=== PATIENT | female | born 1995 ===

== ENCOUNTER 2018-06-21 16:36 | Emergency (ER) | payer OTHER ==
[2018-06-21 16:45] VITALS: O2SAT 100
--- NOTE | 2018-06-21 17:07 | ED PDOC ---
HPI: Trauma/Fall - HPI Time Seen by Provider: 06/21/18 16:45 Chief Complaint (Nursing): Back Pain Chief Complaint (Provider): Pain s/p Fall History Per: Patient History/Exam Limitations: no limitations Injury Occurred (Timing): Hours Ago: (x4) Pain Scale Rating Of: 10 (back pain when standing) Additional Complaint(s): 23 year old female presents to the ED for evaluation of neck, lower back, and right foot pain s/p two slip and fall incidents on her way to work about four hours prior to arrival. She reports landing on her buttocks in a seated position both times, and notes the pain is the worst to her lower back, described as a 10/10 soreness, unrelieved with Tylenol last dose around 1350. Otherwise denies previous back injury/surgery, numbness/weakness, incontinence, urinary symptoms, bowel dysfunction, fever, abdominal pain, N/V/D, loss of consciousness, and head injury. LNMP: does not remember due to irregularity, has control implant in arm PMD: none provided Past Medical History Reviewed: Historical Data, Nursing Documentation, Vital Signs Vital Signs: Last Vital Signs Temp 97.5 F L 06/21/18 16:42 Pulse 83 06/21/18 16:42 Resp 16 06/21/18 16:42 BP 136/95 H 06/21/18 16:42 Pulse Ox 100 06/21/18 16:42 - Medical History PMH: No Chronic Diseases - Surgical History Surgical History: No Surg Hx - Family History Family History: States: Unknown Family Hx - Home Medications Home Medications: Ambulatory Orders Medication Instructions Recorded Acetaminophen [Acetaminophen 8 650 mg PO Q8 PRN #21 tablet.er 06/21/18 Hour] RX: Naproxen 500 mg PO BID PRN #20 tab 06/21/18 - Allergies Allergies/Adverse Reactions: Allergies Allergy/AdvReac Type Severity Reaction Status Date / Time No Known Allergies Allergy Verified 06/21/18 16:42 Review of Systems ROS Statement: Except As Marked, All Systems Reviewed And Found Negative Musculoskeletal: Positive for: Neck Pain, Back Pain (lower, 10/10 soreness) Neurological: Negative for: Other (loss of consciousness) Physical Exam - Reviewed Nursing Documentation Reviewed: Yes Vital Signs Reviewed: Yes - Physical Exam Comments: GENERAL APPEARANCE: Patient is awake, alert, oriented x 3, in no acute distress. SKIN: Warm, dry; (-) cyanosis. HEAD: (-) swelling and tenderness, with no palpable bony defect. EYES: (-) conjunctival pallor, (-) scleral icterus, (-) nystagmus. ENMT: Mucous membranes moist. Nose: (-) tenderness. No oral trauma. Pharynx clear. Airway patent: (-) stridor. Full ROM of mandible without pain. NECK: Supple, full ROM. (+) bilateral paracervical tenderness, (-) vertebral tenderness, (-) lymphadenopathy. CHEST AND RESPIRATORY: (-) rales, (-) rhonchi, (-) wheezes; breath sounds equal bilaterally. Respirations nonlabored. HEART AND CARDIOVASCULAR: (-) irregularity ABDOMEN AND GI: Soft; (-) tenderness. BACK: (+) midline lumbar spine tenderness, (+) coccyx tenderness, (+) right paralumbar tenderness RIGHT FOOT: (+) mild tenderness to hindfoot, full ROM of foot and ankle (-) swelling, (-) ecchymosis, (-) palpable deformity, (-) break in skin integrity. Sensation intact throughout. Remainder of RLE nontender with full ROM. NEURO AND PSYCH: Gait steady in ED. Mental status as above. 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 EOMI. (-) facial asymmetry. Strength 5/5 in all extremities. No gross sensory deficits. Gait: steady. Speech: clear. - Laboratory Results Urine POC: Negative - ECG O2 Sat by Pulse Oximetry: 100 (RA) Pulse Ox Interpretation: Normal Medical Decision Making Medical Decision Making: Initial Impression: acute neck, back, and foot pain s/p fall Time: 1654 Initial Plan: --U-preg --Lumbar spine XR --Naproxen 500mg PO --Reevaluation 1819 Lumbar XRs reviewed, radiology report follows Date of service: 06/21/2018 PROCEDURE: Radiographs of the Lumbar Spine. HISTORY: coccyx injury s/p fall COMPARISON: None available. FINDINGS: BONES: Alignment appears satisfactory. No listhesis. No acute displaced fracture identified. DISC SPACES: Unremarkable. OTHER FINDINGS: Moderate constipation. IMPRESSION: No acute displaced fracture or subluxation identified. Moderate constipation. On re-evaluation, patient reports improvement of symptoms. On exam, patient remains AAOx3, in no acute distress. Vitals stable. Lab/Diagnostic results d/w the patient in great detail. Diagnosis of acute back, neck, and foot pain s/p fall d/w the patient. Based on history, exam and diagnostic results, plan will be for outpatient follow up with clinic/PMD/ortho. Patient instructed to follow-up with pmd / referral provided / the clinic in 1- 2 days without fail. Advised to take medication as prescribed. Return to the emergency room at any time for any new or worsening symptoms. Patient states she fully agrees with and understands discharge instructions. States that she agrees with the plan and disposition. Verbalized and repeated discharge instructions and plan. I have given the patient opportunity to ask any additional questions. Scribe Attestation: Documented by Deneen Godwin, acting as a scribe for Aarti Aggarwal PA-C. Provider Scribe Attestation: All medical record entries made by the Scribe were at my direction and personally dictated by me. I have reviewed the chart and agree that the record accurately reflects my personal performance of the history, physical exam, medical decision making, and the department course for this patient. I have also personally directed, reviewed, and agree with the discharge instructions and disposition. Disposition - Clinical Impression Clinical Impression: Back pain, Neck pain, Foot pain, Fall from slipping on wet surface, Coccyx contusion - Patient ED Disposition Is Patient to be Admitted: No Counseled Patient/Family Regarding: Studies Performed, Diagnosis, Need For Followup, Rx Given - Disposition Referrals: Jason Blanchard MD [Medical Doctor] - [facility] [Outside] Disposition: Routine/Home Disposition Time: 18:20 Condition: STABLE Additional Instructions: The emergency medical care you received today was directed at your acute symptoms. If you were prescribed any medication, please fill it and take as directed. It may take several days for your symptoms to resolve. Return to the Emergency Department if your symptoms worsen, do not improve, or if you have any other problems. Please contact your doctor in 2 days for re-evaluation and follow up / or call one of the physicians/clinics you have been referred to that are listed on the Patient Visit Information form that is included in your discharge packet. Bring any paperwork you were given at discharge with you along with any medications you are taking to your follow up visit. Our treatment cannot replace ongoing medical care by a primary care provider (PCP) outside of the emergency department. Prescriptions: Acetaminophen [Acetaminophen 8 Hour] 650 mg PO Q8 PRN #21 tablet.er PRN Reason: Pain, Moderate (4-7) RX: Naproxen 500 mg PO BID PRN #20 tab PRN Reason: Pain, Moderate (4-7) Instructions: Low Back Pain in Adults, Neck Pain, Muscle and Bone Pain (DC), Contusion (DC), Foot Sprain (DC), Coccyx Injury Forms: [facility] (Greek), [facility] ED School/Work Excuse - POA Present On Arrival: Falls Or Trauma
[2018-06-21] MEDS: Naproxen 500 MG TAB PO STA (17:09)
--- NOTE | 2018-06-21 18:27 | RAD ---
Date of service: 06/21/2018 PROCEDURE: Radiographs of the Lumbar Spine. HISTORY: coccyx injury s/p fall COMPARISON: None available. FINDINGS: BONES: Alignment appears satisfactory. No listhesis. No acute displaced fracture identified. DISC SPACES: Unremarkable. OTHER FINDINGS: Moderate constipation. IMPRESSION: No acute displaced fracture or subluxation identified. Moderate constipation.
[2018-06-21 18:37] VITALS: BP 114/68; PULSE 77; RESP 18; TEMP 98
== END 2018-06-21 18:36 | disposition home or self-care (01) ==
LOC: H.ER 16:36
DX: S30.0XXA Contusion of lower back and pelvis, initial encounter (principal); M54.2 Cervicalgia; M79.671 Pain in right foot; W01.0XXA Fall on same level from slipping, tripping and stumbling without subsequent striking against object, initial encounter; Y92.89 Other specified places as the place of occurrence of the external cause; K59.00 Constipation, unspecified